=== PATIENT | female | born 1950 | race Caucasian/White ===

== ENCOUNTER 2020-10-24 13:47 | Outpatient (CLI) | payer OTHER | END 2020-10-24 15:09 | disposition home or self-care (01) | LOC: OFIC 805 13:47 | PROVIDERS: ATTEND Otolaryngology Otology & Neurotology | DX: H93.11 Tinnitus, right ear (principal); H81.11 Benign paroxysmal vertigo, right ear ==

== ENCOUNTER 2021-05-01 13:30 | Outpatient (CLI) | payer OTHER | END 2021-05-01 15:30 | disposition home or self-care (01) | LOC: ASH CLINIC 13:30 | PROVIDERS: ATTEND Physical Medicine & Rehabilitation | DX: Z23 Encounter for immunization (principal); U07.1 COVID-19 ==

== ENCOUNTER 2021-05-05 02:05 | Emergency (ER) | payer OTHER ==
[~2021-05-05] VITALS: Ht 157.5 cm; Wt 54.4 kg
[2021-05-05] MEDS ORDERED: ACETAMINOPHEN650 M2 PO (06:28)
[2021-05-05] MEDS ORDERED: ACETAMINOPHEN650 M2 (06:32)
== END 2021-05-05 06:51 | disposition home or self-care (01) ==
LOC: ER 02:05
DX: U07.1 COVID-19 (principal); R06.02 Shortness of breath; B34.9 Viral infection, unspecified; R50.9 Fever, unspecified; J11.1 Influenza due to unidentified influenza virus with other respiratory manifestations